=== PATIENT | female | born 1940 | race Caucasian/White ===

== ENCOUNTER 2016-09-25 13:15 | Day surgery (SDC) | payer MEDICARE, BC ==
[2016-09-23 14:31] LABS: HEMATOCRIT 38.9 % (36.0-48.0)
[2016-09-23 14:52] LABS: BUN (BLOOD UREA NITROGEN) 18 MG/DL (6-23); CALCIUM, SERUM 9.6 MG/DL (8.5-10.4); CHLORIDE, SERUM 101 MMOL/L (96-112); CO2 (CARBON DIOXIDE) 37 MMOL/L (24-34); CREATININE 0.95 MG/DL (0.55-1.02); GFR AFRICAN AMERICAN 68 ML/MIN (>=60); GFR NON AFRICAN AMERICAN 59 ML/MIN (>=60); GLUCOSE, SERUM 118 MG/DL (60-99); POTASSIUM, SERUM 4.2 MMOL/L (3.5-5.3); SODIUM, SERUM 141 MMOL/L (135-148)
--- NOTE | ~2016-09-25 | OP ---
Record Of Operation [place] [address] [facility] [place]. [address] NAME: MANISH WOODS DOCHRISTINKEVIN : 42 STATUS : [facility]#: [id number] AGE: 76 ADM/REG DATE : 09/25/16 MR#: [id number] REPORT SERV DATE: 09/26/16 DICTATED BY: SHAHNAZ CHANCE DATE: 09/25/16 REPORT STATUS : Draft TRANSCRIBED BY: MODL DATE: 09/25/16 DATE OF PROCEDURE: 09/25/2016 PREOPERATIVE DIAGNOSES: 1. Right breast mass 10 o'clock position, persistent. 2. Status post inflammatory phlegmonous infected breast mass. 3. Status post incision, drainage, and multiple courses of antibiotics. 4. Status post core biopsies of the right breast mass. Ultrasound guided. 5. Status post infected cystic mass of the right suprapubic area. Resolved after antibiotic therapy. 6. Status post antibiotic therapy. OPERATION: 1. Resection of a right breast mass persistent 10 o'clock with overlying skin and draining sinus. Area measures 7 x 6 x 4 cm. 2. Resection of the skin and subcutaneous tissue right suprapubic area 3 x 1.5 cm. POSTOPERATIVE DIAGNOSES: 1. Right breast mass 10 o'clock position, persistent. 2. Status post inflammatory phlegmonous infected breast mass. 3. Status post incision, drainage, and multiple courses of antibiotics. 4. Status post core biopsies of the right breast mass. Ultrasound guided. 5. Status post infected cystic mass of the right suprapubic area. Resolved after antibiotic therapy. 6. Status post antibiotic therapy. SURGEON: Shahnaz Chance M.D. [employer]: [place]. ANESTHESIA: LMA, general. COMPLICATIONS: None. ESTIMATED BLOOD LOSS: Minimal. COUNTS: Correct. DISPOSITION: PACU. SPECIMENS TO PATHOLOGY: 1. Right breast mass including overlying skin. 2. Skin and subcutaneous tissues at right suprapubic area. Time-out protocol enforced at the beginning of the case. Time-out protocol enforced at the end of the case. Record Of Operation [place] [address] [facility] [place]. [address] NAME: MANISH WOODS DOCHRISTINKEVIN : 42 STATUS : [facility] PAT#: [id number] AGE: 76 ADM/REG DATE : 09/25/16 MR#: [id number] REPORT SERV DATE: 09/26/16 DICTATED BY: SHAHNAZ CHANCE DATE: 09/25/16 REPORT STATUS : Draft TRANSCRIBED BY: KEVON DATE: 09/25/16 Informed consent obtained. All options and management discussed. Decision was made to proceed with surgical therapy after we have attempted every other possible option by draining the area initially, treating with directed antibiotic therapy, then empiric therapy, then obtaining core biopsies, then choosing conservative management but because the problem persisted, we chose to proceed with resection. All options and management were thoroughly discussed. She understood the indications, potential risks, complications, limitations, and alternatives as well. SUMMARY: She was brought to the procedure room, placed at supine, patient identified, procedure confirmed. Time-out protocol enforced, prophylactic IV antibiotics given. The right breast and the right pubic area were prepped and draped in a sterile fashion. A transverse elliptical incision was designed directly over the mass at the 10 o'clock position, carried down through the underlying subcutaneous tissue. Flaps were developed in all directions using the electrocautery on a low setting with a protected guarded tip. We dissected the planes of normal adipose tissue all the way around the mass in all directions. The specimen was removed, oriented, labeled and sent to pathology for analysis. Hemostasis secured, dermis approximated with interrupted sutures of 3-0 Monocryl, the skin with a running suture of 4-0 Monocryl subcuticular. We then proceeded to resect the suprapubic cystic infected area or hidradenitis. The transverse elliptical incision was then designed encompassing the area. The incision was carried down through the underlying subcutaneous tissue removing the area that appeared to have been inflamed in the past. The plane of dissection was with normal healthy appearing tissue. The area removed, hemostasis secured, dermis approximated with interrupted sutures of 3-0 Monocryl, skin with interrupted sutures of 4-0 nylon. Both areas were irrigated with 0.25% Marcaine for postoperative pain control in the operative field in the middle of the incision. Sterile dressings were applied. She tolerated procedure well. No complications. Exit time out protocol was enforced. The plan is to discharge the patient home and follow as an outpatient. She already has a prescription for analgesics. MAURIZIO/KEVON Shahnaz Chance M.D. / [id number] CC: Flavio Sosa M.D. Hal Hill, M.D.
[~2016-09-25 13:15] MED LIST: 8 HOUR650 MG PO; ALLEGRA180 PO; ASAB PO; CALTRA600D PO; COREG6 PO; COZ25 PO; EFFEXOR XR150 MG PO; FERROUS SULF325 M1 PO; FISH OIL1200 MG PO; GLUCPH PO; GLUCPH8 PO; KLOR-CON 1010 MEQ PO; L40 PO; MULTIVIT/MIN PO; NEXIUM20 M1 PO; PROBIOTICS PO; TIMOPTIC0.5 % OPH; VITAMIN D31000 UNIT PO; Z300 PO; ZOCOR40 PO; ZYRTEC ALLGY10 MG PO
== END 2016-09-25 19:56 | disposition home or self-care (01) ==
LOC: SDC 13:15
PROVIDERS: Surgery
PROC: 0HBT0ZZ Excision of Right Breast, Open Approach (ICD-10-PCS; principal; 2016-09-25 14:45)
DX: N61.1 Abscess of the breast and nipple (principal); I10 Essential (primary) hypertension; G47.33 Obstructive sleep apnea (adult) (pediatric); E66.01 Morbid (severe) obesity due to excess calories; E11.9 Type 2 diabetes mellitus without complications; D86.9 Sarcoidosis, unspecified; K44.9 Diaphragmatic hernia without obstruction or gangrene; E78.00 Pure hypercholesterolemia, unspecified; K57.90 Diverticulosis of intestine, part unspecified, without perforation or abscess without bleeding; M19.90 Unspecified osteoarthritis, unspecified site; M10.9 Gout, unspecified; F32.9 Major depressive disorder, single episode, unspecified; F41.9 Anxiety disorder, unspecified; H40.9 Unspecified glaucoma; Z90.49 Acquired absence of other specified parts of digestive tract; Z85.820 Personal history of malignant melanoma of skin; Z98.890 Other specified postprocedural states; Z88.0 Allergy status to penicillin; Z79.899 Other long term (current) drug therapy; Z79.82 Long term (current) use of aspirin; Z79.84 Long term (current) use of oral hypoglycemic drugs
CPT/HCPCS: 80048; 82962; 85014; 85018; 88304; 88307; 93005; A9270-GY; J0690; J2270; J2405; J3010